=== PATIENT | female | born 1965 | race Caucasian/White ===

== ENCOUNTER 2020-06-25 15:32 | Outpatient (CLI) | payer OTHER, SELFPAY | END 2020-06-25 15:33 | disposition home or self-care (01) | LOC: ANHCOVIDVC 15:32 | PROVIDERS: PCP Family Medicine | DX: Z23 Encounter for immunization (principal) | CPT/HCPCS: 0001A; 91300 ==

== ENCOUNTER 2020-07-03 09:18 | Outpatient (CLI) | payer OTHER, SELFPAY ==
--- NOTE | ~2020-07-03 | XR_ITS ---
EXAMINATION: XR chest 2V EXAM DATE: 07/03/2020 09:40 INDICATION: Left posterior calf melanoma. TECHNIQUE: Frontal and lateral projections of the chest obtained and reviewed. Comparison is made to prior examination from 12/30/2012. FINDINGS: The lungs are clear. There are no pleural effusions. The cardiomediastinal silhouette is within normal limits. There is no pneumothorax suspected. The bones and soft tissues are unremarkab le. There are cholecystectomy clips. IMPRESSION: Unremarkable chest x-ray exam. Reviewed, dictated and finalized at location B. 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
== END 2020-07-03 09:19 | disposition home or self-care (01) ==
LOC: ANHIMG 09:26
PROVIDERS: PCP Family Medicine; Visit Provider Surgery
DX: C43.72 Malignant melanoma of left lower limb, including hip (principal)
CPT/HCPCS: 71046

== ENCOUNTER → 2020-07-09 11:56 | Outpatient (CLI) | payer OTHER, SELFPAY ==
--- NOTE | ~2020-07-09 | XR_ITS ---
EXAMINATION: XR thoracic spine 2V EXAM DATE: 07/09/2020 12:19 INDICATION: Fell 2 weeks ago with persistent low back pain and thoracic pain, sacral pain. Initial en counter. TECHNIQUE: Frontal and lateral projections of the thoracic spine as well as lateral swimmers projecti on of the upper thoracic spine for interpretation. There is no prior study for comparison. FINDINGS: There is mild mid and lower thoracic disc disease with small endplate osteophytes and Schmo rl's nodes. There are no acute fractures identified. The vertebral bodies are aligned in the AP dimen taty. Paraspinal soft tissue is unremarkable. There are cholecystectomy clips. IMPRESSION: Mild thoracic spondylosis. No acute findings. Reviewed, dictated and finalized at location A.
--- NOTE | ~2020-07-09 | XR_ITS ---
EXAMINATION: XR lumbar spine 2-3V, XR sacrum coccyx min 2V EXAM DATE: 07/09/2020 12:19 INDICATION: Fell 2 weeks ago with persistent low back pain and thoracic pain and sacral pain. Initial encounter. TECHNIQUE: Lumber spine frontal, lateral, lateral L5-S1 projections for interpretation. Sacrum fronta l, inlet, lateral projections. There are no prior studies for comparison. FINDINGS: There are no acute fractures identified. There is 2-3 mm retrolisthesis L2 on L3 and L3 on L4. Mild to moderate disc disease at L3-4 and L4-5, mild at the other lumbar levels. Some small endp late osteophytes at mid lumbar and lower thoracic levels. Cholecystectomy clips. Mild to moderate mid and lower lumbar facet arthropathy. Sacrum, sacroiliac joints, sacral arcuate lines are intact. IMPRESSION: 1. Mild to moderate lumbar spondylosis. 2. No acute lumbosacral findings. Reviewed, dictated and finalized at location A. IMPRESSION: 1. Mild to moderate lumbar spondylosis. 2. No acute lumbosacral findings.
== END ==
PROVIDERS: PCP Family Medicine; Visit Provider Physician Assistant
DX: M47.894 Other spondylosis, thoracic region (principal); M47.896 Other spondylosis, lumbar region
CPT/HCPCS: 72070; 72100; 72220

== ENCOUNTER 2020-07-16 15:32 | Outpatient (CLI) | payer OTHER, SELFPAY | END 2020-07-16 15:33 | disposition home or self-care (01) | LOC: ANHCOVIDVC 15:32 | PROVIDERS: PCP Family Medicine | DX: Z23 Encounter for immunization (principal) | CPT/HCPCS: 0002A; 91300 ==

== ENCOUNTER 2021-01-22 11:17 | Outpatient (CLI) | payer OTHER, SELFPAY ==
--- NOTE | ~2021-01-22 | XR_ITS ---
XR chest 2V DATE: 01/22/2021 11:39 INDICATION: Posterior left calf melanoma. TECHNIQUE: PA and lateral views COMPARISON: 07/03/2020 PA and lateral chest FINDINGS: Normal heart size. No hilar or mediastinal enlargement. There is mild aortic unfolding. No pulmonary infiltrate or consolidation, pleural effusion or pulmonary vascular congestion or pneumo thorax is detected. Surgical clips, right upper quadrant, consistent with cholecystectomy. Mild degenerative spurring of the thoracic spine. Osteopenia. IMPRESSION: No active cardiac pulmonary disease Status post cholecystectomy Reviewed, dictated and finalized at location B.
== END 2021-01-22 11:18 | disposition home or self-care (01) ==
PROVIDERS: PCP Family Medicine; Visit Provider Surgery
DX: C43.72 Malignant melanoma of left lower limb, including hip (principal); Z90.49 Acquired absence of other specified parts of digestive tract
CPT/HCPCS: 71046

== ENCOUNTER 2021-09-15 13:05 | Outpatient (CLI) | payer OTHER, SELFPAY ==
--- NOTE | ~2021-09-15 | XR_ITS ---
EXAMINATION: XR chest 2V DATE: 09/15/2021 13:27 INDICATION: Left posterior calf melanoma. TECHNIQUE: Frontal and lateral views of the chest were obtained. COMPARISON: Chest 2 views 01/22/2021 FINDINGS: The chest demonstrates clear lungs without pneumonia, pleural effusion, or pneumothorax. Th e heart size is normal. Surgical clips in the right upper quadrant are likely from cholecystectomy. IMPRESSION: 1. No evidence of metastatic disease. Reviewed, dictated and finalized at location A.
== END 2021-09-15 13:06 | disposition home or self-care (01) ==
PROVIDERS: PCP Family Medicine; Visit Provider Surgery
DX: C43.72 Malignant melanoma of left lower limb, including hip (principal)
CPT/HCPCS: 71046

== ENCOUNTER 2021-09-16 09:43 | Outpatient (CLI) | payer OTHER, SELFPAY ==
--- NOTE | ~2021-09-16 | XR_ITS ---
EXAMINATION: XR foot RT min 3V DATE: 09/16/2021 09:56 INDICATION: Right foot injury and pain. TECHNIQUE: 4 views of right foot were obtained. COMPARISON: None. FINDINGS: Bone alignment is normal. No fracture. There is mild osteoarthritis of first metatarsophala ngeal joint and some of the interphalangeal joints and midfoot joints. There is an enthesophyte at po sterior aspect of calcaneal tuberosity. IMPRESSION: 1. Mild polyarticular osteoarthritis. Reviewed, dictated and finalized at location A.
== END 2021-09-16 09:44 | disposition home or self-care (01) ==
PROVIDERS: PCP Family Medicine; Visit Provider Family Medicine
DX: M79.671 Pain in right foot (principal); M19.071 Primary osteoarthritis, right ankle and foot
CPT/HCPCS: 73630

== ENCOUNTER 2022-04-08 11:41 | Outpatient (CLI) | payer OTHER, SELFPAY ==
--- NOTE | ~2022-04-08 | XR_ITS ---
EXAMINATION: XR chest 2V DATE: 04/08/2022 12:09 INDICATION: Melanoma TECHNIQUE: PA and lateral views of the chest are obtained. COMPARISON: 09/15/2021 FINDINGS: The lungs are free of acute opacities. No pleural effusion or pneumothorax. The cardiomedia stinal silhouette is normal. There is moderate thoracic spondylosis. Surgical clips in the right uppe r quadrant are likely from prior cholecystectomy. IMPRESSION: 1. No acute cardiopulmonary abnormality. Reviewed, dictated and finalized at location A. TBAND SEPARATOR
== END 2022-04-08 11:42 | disposition home or self-care (01) ==
PROVIDERS: PCP Family Medicine; Visit Provider Surgery
DX: C43.72 Malignant melanoma of left lower limb, including hip (principal)
CPT/HCPCS: 71046

== ENCOUNTER 2022-04-21 00:31 | Day surgery (SDC) | payer OTHER, SELFPAY ==
[2022-04-08 12:35] VITALS: BMI 26.0
[2022-04-21 09:15] VITALS: BP 137/86; PULSE 95; RESP 18; TEMP 36.6; O2SAT 100; BMI 25.8
[2022-04-21] MEDS: LACTATED RINGERS 1,000 ML 150 ML IV CONT (09:21)
--- NOTE | 2022-04-21 10:13 | WPDANESEPPF ---
Anes - Initial Pre Proc Eval Procedure: Operation Date: 04/21/22 10:30 Proposed Procedures p Screening Colonoscopy - Dillon Tejeda MD Date/Time: 04/21/22 10:13 Surgeon: Dillon Tejeda MD Pre Op Diagnosis: neoplasm screening Patient Data Age: 56 Gender: F Height: 1.6 m Weight: 66.1 kg Last Vital Signs Temp 97.8 F 04/21/22 09:15 Pulse 95 04/21/22 09:15 Resp 18 04/21/22 09:15 BP 137/86 04/21/22 09:15 Pulse Ox 100 04/21/22 09:15 O2 Del Method Room Air 04/21/22 09:15 Allergies Allergy/AdvReac Type Severity Reaction Status Date / Time codeine Allergy Severe Swelling Verified 04/21/22 09:13 of Lip/Tongue/Throat hydrocodone Allergy Severe RASH,THROAT Verified 04/21/22 09:13 SWELLING HYDROCODONE BIT Allergy Severe Swelling Uncoded 04/08/22 12:36 of Lip/Tongue/Throat Home Medications Medication Instructions Recorded Confirmed Type aspirin 325 mg tablet 325 mg PO DAILY 03/28/19 04/21/22 History cetirizine 10 mg capsule (Zyrtec) 10 mg PO DAILY 03/29/19 04/21/22 History levalbuterol tartrate 45 2 inh inhalation Q6H PRN shortness 12/18/20 04/21/22 Rx mcg/actuation aerosol inhaler of breath or wheezing #15 grams (Xopenex HFA) azelastine 205.5 mcg (0.15 %) 1 spray intranasal BID #30 mL 08/16/21 04/21/22 Rx nasal spray multivitamin 1 tablet PO DAILY 12/17/21 04/21/22 History pantoprazole 40 mg tablet,delayed 40 mg PO QAM #90 tabs 01/02/22 04/21/22 Rx release Adult Probiotic 1 tab-cap PO DAILY 04/08/22 04/21/22 History ascorbic acid (vitamin C) 250 mg 500 mg PO DAILY 04/08/22 04/21/22 History chewable tablet budesonide-formoterol HFA 80 2 puff inhalation Q12H 04/08/22 04/21/22 History mcg-4.5 mcg/actuation aerosol inhaler (Symbicort) docusate sodium 100 mg tablet 100 mg PO DAILY 04/08/22 04/21/22 History levalbuterol HCl 1.25 mg/3 mL See Rx Instructions .Route 04/08/22 04/21/22 History solution for nebulization .COMPLEX PRN Shortness Of Breath Or Wheezing metoprolol succinate 25 mg 25 mg PO HS 04/08/22 04/21/22 History tablet,extended release 24 hr Patient hx anesthesia problems: none Family hx anesthesia problems: none Results Review: All pre-operative results and documents have been reviewed as part of the pre-operative evaluation. [facility] Past Medical History Medical History Abdominal pain Acute bronchitis due to infection Acute sinusitis, unspecified Colon polyps Essential hypertension Mild persistent asthma with exacerbation Mild persistent asthma without complication Palpitation Pulmonary embolism Vitamin D deficiency Family History Family History Mother Asthma Family history of sleep apnea Other Cerebrovascular accident Colon polyp Diabetes mellitus Family history of arthritis Social History Social History Smoking status: Never smoker Second hand tobacco smoke exposure: No Alcohol intake: never Alcohol use details: RARE Substance use: never Substance use type: does not use Living arrangements: with family Gender identity (if verbalized by the patient): Female Spiritual care concerns: No Agree to blood products: Yes Anes - Eval Final PreProcedure Day of Procedure 04/21/22 10:13 Patient weight: normal Heart: regular rate and rhythm Lungs: clear to auscultation Airway: Mallampati scale class II Neurological: alert and oriented Last oral intake: >/= 8 hours ASA classification: II Emergent: no Anesthetic plan: proceed Anesthesia type and monitoring: general GIVS and standard monitoring Results Review: All pre-operative results and documents have been reviewed as part of the pre-operative evaluation. Informed Consent: The patient's anesthetic plan and its attendant risks and benefits were discussed with chas
--- NOTE | 2022-04-21 10:26 | PM.HPGS ---
History of Present Illness History of Present Illness Consent: Risks, benefits, and alternatives have been discussed and questions answered. Patient agrees to proceed with procedure. Chief complaint: neoplasm screening Narrative: Sheila Freeman is a 56 year old female Presents for screening colonoscopy. Patient's current weight appetite bowel movements are normal. Patient denies abdominal pain. She has had no bleeding. Patient's previous colonoscopy 2012 was unremarkable. Family history is significant than an uncle had colon cancer. Patient's mother had of neuroendocrine tumor removed from her duodenum earlier this year. Patient presents today for screening colonoscopy. Review of Systems Review of Systems: Review of systems noncontributory. [facility] Past Medical History Medical History Abdominal pain Acute bronchitis due to infection Acute sinusitis, unspecified Colon polyps Essential hypertension Mild persistent asthma with exacerbation Mild persistent asthma without complication Palpitation Pulmonary embolism Vitamin D deficiency Family History Family History Mother Asthma Family history of sleep apnea Other Cerebrovascular accident Colon polyp Diabetes mellitus Family history of arthritis Social History Social History Smoking status: Never smoker Second hand tobacco smoke exposure: No Alcohol intake: never Alcohol use details: RARE Substance use: never Substance use type: does not use Living arrangements: with family Gender identity (if verbalized by the patient): Female Spiritual care concerns: No Agree to blood products: Yes Meds Home Medications and Allergies Home Medications Medication Instructions Recorded Confirmed Type aspirin 325 mg tablet 325 mg PO DAILY 03/28/19 04/21/22 History cetirizine 10 mg capsule (Zyrtec) 10 mg PO DAILY 03/29/19 04/21/22 History levalbuterol tartrate 45 2 inh inhalation Q6H PRN shortness 12/18/20 04/21/22 Rx mcg/actuation aerosol inhaler of breath or wheezing #15 grams (Xopenex HFA) azelastine 205.5 mcg (0.15 %) 1 spray intranasal BID #30 mL 08/16/21 04/21/22 Rx nasal spray multivitamin 1 tablet PO DAILY 12/17/21 04/21/22 History pantoprazole 40 mg tablet,delayed 40 mg PO QAM #90 tabs 01/02/22 04/21/22 Rx release Adult Probiotic 1 tab-cap PO DAILY 04/08/22 04/21/22 History ascorbic acid (vitamin C) 250 mg 500 mg PO DAILY 04/08/22 04/21/22 History chewable tablet budesonide-formoterol HFA 80 2 puff inhalation Q12H 04/08/22 04/21/22 History mcg-4.5 mcg/actuation aerosol inhaler (Symbicort) docusate sodium 100 mg tablet 100 mg PO DAILY 04/08/22 04/21/22 History levalbuterol HCl 1.25 mg/3 mL See Rx Instructions .Route 04/08/22 04/21/22 History solution for nebulization .COMPLEX PRN Shortness Of Breath Or Wheezing metoprolol succinate 25 mg 25 mg PO HS 04/08/22 04/21/22 History tablet,extended release 24 hr Allergies Allergy/AdvReac Type Severity Reaction Status Date / Time codeine Allergy Severe Swelling Verified 04/21/22 09:13 of Lip/Tongue/Throat hydrocodone Allergy Severe RASH,THROAT Verified 04/21/22 09:13 SWELLING HYDROCODONE BIT Allergy Severe Swelling Uncoded 04/08/22 12:36 of Lip/Tongue/Throat Vital Signs Vital Signs - 24 hr 04/21/22 09:15 Temperature 97.8 F Pulse Rate 95 Respiratory Rate 18 Blood Pressure 137/86 Pulse Oximetry 100 Oxygen Delivery Room Air Exam Narrative: Physical exam reveals patient to be alert. Vital signs stable. HEENT exam is unremarkable. Patient is anicteric. Lungs are clear to auscultation and percussion. Heart is without murmur or extra sounds. Abdomen bowel sounds are present soft nontender with no organomegaly. Digital external rectal exam is normal.
[2022-04-21 10:51] VITALS: BP 131/73; PULSE 75; RESP 18; O2SAT 98
[2022-04-21 11:01] VITALS: BP 126/74; PULSE 77; RESP 20; O2SAT 98
[2022-04-21 11:11] VITALS: BP 140/75; PULSE 78; RESP 22; O2SAT 98
== END 2022-04-21 11:21 | disposition home or self-care (01) ==
PROVIDERS: PCP Family Medicine; Visit Provider Internal Medicine Gastroenterology
PROC: 0DJD8ZZ Inspection of Lower Intestinal Tract, Via Natural or Artificial Opening Endoscopic (ICD-10-PCS; CPT 45378; principal; 2022-04-21 10:30)
DX: Z12.11 Encounter for screening for malignant neoplasm of colon (principal); K64.8 Other hemorrhoids; I10 Essential (primary) hypertension; J45.30 Mild persistent asthma, uncomplicated; Z79.51 Long term (current) use of inhaled steroids; Z79.82 Long term (current) use of aspirin
CPT/HCPCS: 45378; J2704; J7120

== ENCOUNTER 2022-04-22 07:44 | Outpatient (CLI) | payer OTHER, SELFPAY ==
--- NOTE | ~2022-04-22 | MM_ITS ---
EXAMINATION: MM screening joaquin BI w molina HISTORY: Screening mammogram TECHNIQUE: Craniocaudal and mediolateral oblique 3-D tomosynthesis images were obtained and synthetic 2-D images were generated. CAD analysis was submitted and interpreted. COMPARISON: 10/19/2018, 01/19/2015, 04/2013 bilateral screening mammogram examinations BREAST PARENCHYMAL COMPOSITION: The breasts are heterogeneously dense, which may obscure small masses . FINDINGS: Scattered bilateral ...benign calcifications. There is no evidence of suspicious mass, calc ification, or architectural distortion to suggest malignancy in either breast. There has been no susp icious interval change. IMPRESSION: 1. No mammographic evidence of malignancy. 2. Recommend routine screening mammography in one year. BI-RADS Category 2: Benign finding(s). Reviewed, dictated and finalized at location A. T MAGISTRATE
--- NOTE | ~2022-04-22 | DEXA_ITS ---
Bone Density Report Name: NUBIA MOTT Age: 56 Sex: Female Ethnicity: White Date of : 1965 Indication: postmenopausal; screening for osteoporosis; height loss; cancer; asthma or emphysema; Referring Provider: DEAN MONTOYA Study: Bone densitometry was performed. Exam Date: April 22, 2022 Accession number: [id number] Bone Density: Region BMD T-score Z-score Classification AP Spine(L1-L4) 0.898 -1.4 -0.1 Osteopenia Femoral Neck (Left) 0.733 -1.0 0.1 Normal Total Hip (Left) 0.874 -0.6 0.3 Normal Femoral Neck (Right) 0.749 -0.9 0.3 Normal Total Hip (Right) 0.930 -0.1 0.7 Normal Total Hip Mean 0.902 -0.4 0.5 Normal World Health Organization criteria for BMD impression classify patients as: Normal (T-score at or above -1.0), Osteopenia (T-score between -1.0 and -2.5), or Osteoporosis (T-score at or below -2.5). 10-year Fracture Risk(1): Major Osteoporotic Fracture 6.6% Hip Fracture 0.3% Reported Risk Factors: [place] (), Neck BMD=0.733, BMI=26.0 (1) FRAX(R) Version 3.08. Fracture probability calculated for an untreated patient. Fracture probability may be lower if the patient has received treatment. Clinical Information Provided by Patient: Has the following medical conditions: Asthma or Emphysema, Cancer Patient maximum height was 63 Menopause Age: 50 Drinks caffeinated beverages Onset of menses at age 14 Number of children 0 Impression: The patient has low bone mass, based on the Total Spine T-score. The patient has an estimated ten-year risk of hip fracture of 0.3% and an estimated ten-year risk of major fracture of 6.6%, based on the WHO FRAX algorithm. Discussion: BONE DENSITY IS LOW AT ONE OR MORE SKELETAL SITES. This patient's lowest T-score is low at one or more skeletal sites. It meets the World Health Organization's (WHO) criteria for ?low bone mass? (T-score between -1.0 and -2.5). The patient's 10-year risk of fracture as calculated by FRAX is less than the threshold where pharmacological therapy is recommended by the National Osteoporosis Foundation (NOF). However, all treatment decisions require clinical judgment and consideration of individual patient factors, including patient preferences, comorbidities, previous drug use, risk factors not captured in the FRAX model (e.g., frailty, falls, vitamin D deficiency, increased bone turnover, interval significant decline in bone density) and possible under or overestimation of fracture risk by FRAX. The patient should follow a healthful lifestyle (good nutrition with adequate calcium and vitamin D, and appropriate weight-bearing exercise). Follow-Up: Consider repeating this study in 2 to 3 years to reassess this patient's status, or sooner if there is some new clinical indication. Reported by: Kasi
== END 2022-04-22 07:45 | disposition home or self-care (01) ==
LOC: ANHIMG 07:46
PROVIDERS: PCP Family Medicine; Visit Provider Family Medicine
DX: Z12.31 Encounter for screening mammogram for malignant neoplasm of breast (principal); Z78.0 Asymptomatic menopausal state; M85.88 Other specified disorders of bone density and structure, other site
CPT/HCPCS: 77063; 77067; 77080

== ENCOUNTER 2022-09-17 08:03 | Emergency (ER) | payer OTHER, SELFPAY ==
--- NOTE | 2022-09-17 08:04 | ED.URI ---
HPI - URI/Sore Throat General Chief Complaint: Upper Respiratory Infection Stated Complaint: Lt Ear Irritation,Congestion Time Seen by Provider: 09/17/22 08:03 Source: patient Mode of arrival: ambulatory Limitations: no limitations History of Present Illness HPI Narrative: Patient is a 49-year-old female who presents with congestion and left ear pain for 2 days. Patient denies any fever, chills, cough, sore throat, nausea, vomiting, diarrhea. States left ear pain became unbearable last night, has taken Tylenol with no relief and used warm wash rags. Is also taking Zyrtec for congestion. Denies any draining from ear but states she feels like it is under water . Related Data Home Medications Medication Instructions Recorded Confirmed aspirin 325 mg tablet 325 mg PO DAILY 03/28/19 06/17/22 cetirizine 10 mg capsule (Zyrtec) 10 mg PO DAILY 03/29/19 06/17/22 multivitamin 1 tablet PO DAILY 12/17/21 06/17/22 Adult Probiotic 1 tab-cap PO DAILY 04/08/22 06/17/22 ascorbic acid (vitamin C) 250 mg 500 mg PO DAILY 04/08/22 06/17/22 chewable tablet docusate sodium 100 mg tablet 100 mg PO DAILY 04/08/22 06/17/22 Allergies Allergy/AdvReac Type Severity Reaction Status Date / Time codeine Allergy Severe Swelling Verified 09/17/22 08:14 of Lip/Tongue/Throat hydrocodone Allergy Severe RASH,THROAT Verified 09/17/22 08:14 SWELLING HYDROCODONE BIT Allergy Severe Swelling Uncoded 09/17/22 08:14 of Lip/Tongue/Throat Review of Systems Review of Systems: All systems reviewed & are unremarkable except as noted in HPI and below Constitutional: Constitutional: Denies body ache(s), Denies chills, Denies fatigue, Denies fever(s), Denies headache(s), Denies malaise and Denies weakness Eyes: Eyes: Denies blurry vision, Denies itchy eyes and Denies loss of vision ENT: Reports otalgia, Denies headache(s), Reports nasal congestion, Denies sinus pain and Denies sore throat Cardiovascular: Cardiovascular: Denies chest pain, Denies irregular heart rhythm and Denies dyspnea Respiratory: Respiratory: Denies cough and Denies dyspnea Gastrointestinal: Gastrointestinal: Denies abdominal pain, Denies diarrhea, Denies nausea and Denies vomiting Musculoskeletal: Musculoskeletal: Denies back pain, Denies myalgias and Denies arthralgias Integumentary/Breasts: Skin/Breast: Denies pruritus and Denies rash Neurologic: Denies headache(s), Denies loss of vision and Denies weakness Psychiatric: Psychiatric: Reports no additional psychiatric complaints Endocrine: Endocrine: Denies fatigue Allergic/Immunologic: Allergic/Immunologic: Denies itchy eyes PMFSH Past Medical History Medical History Abdominal pain Acute bronchitis due to infection Acute sinusitis, unspecified Colon polyps Essential hypertension Mild persistent asthma with exacerbation Mild persistent asthma without complication Palpitation Pulmonary embolism Vitamin D deficiency Family History Family History Mother Asthma Family history of sleep apnea Other Cerebrovascular accident Colon polyp Diabetes mellitus Family history of arthritis Social History Social History (Updated 06/17/22 @ 08:50 by Yocasta Wharton [facility]) Smoking status: Never smoker Second hand tobacco smoke exposure: No Alcohol intake: never Alcohol use details: RARE Substance use: never Substance use type: does not use Lack of Transportation: No Lack of Food: Never True Current Housing: I Have Housing Concerned About Future Housing: No Difficulty Paying Gas/Electric Bills: No Difficulty Paying for Meds: No Currently Unemployed: No Education: Bachelor's Degree Difficulty w/ Childcare or Family Care: No Living arrangements: with family Occupation/Education: occupation Gender identity (if verbalized by the patient): Female Sexual Orien
[2022-09-17 08:11] VITALS: BP 161/78; PULSE 74; RESP 18; TEMP 36.7; O2SAT 100
== END 2022-09-17 08:26 | disposition home or self-care (01) ==
PROVIDERS: Emergency Provider Nurse Practitioner Family; PCP Family Medicine
DX: H66.92 Otitis media, unspecified, left ear (principal); I10 Essential (primary) hypertension; J45.909 Unspecified asthma, uncomplicated; Z86.711 Personal history of pulmonary embolism; Z79.82 Long term (current) use of aspirin
CPT/HCPCS: 99213; G0463

== ENCOUNTER 2023-04-03 13:51 | Outpatient (CLI) | payer OTHER, SELFPAY ==
--- NOTE | ~2023-04-03 | XR_ITS ---
Clinical Indication: Melanoma PA and lateral views of the chest: Comparison: 04/08/2022 Findings: The lungs are clear, without evidence of focal consolidation or pleural effusion. Cardiome diastinal silhouette is within normal limits. Bones and soft tissues are unremarkable. Impression: Normal chest. Reviewed, dictated and finalized at location . UNICATIONS CONTROLLER Impression: Normal chest.
== END 2023-04-03 13:52 | disposition home or self-care (01) ==
LOC: ANHIMG 13:56
PROVIDERS: PCP Family Medicine; Visit Provider Surgery
DX: C43.72 Malignant melanoma of left lower limb, including hip (principal)
CPT/HCPCS: 71046

== ENCOUNTER 2024-01-19 13:22 | Outpatient (CLI) | payer OTHER, SELFPAY ==
--- NOTE | ~2024-01-19 | XR_ITS ---
EXAMINATION: XR chest 2V 01/19/2024 13:48 INDICATION: Melanoma. PROCEDURE: 2 view chest COMPARISON: Comparison to multiple prior studies sequentially, with oldest reviewed study dated 04/2020. FINDINGS: The lungs are clear. The cardiomediastinal silhouette is within normal limits. There are no pleural effusions. There is no pneumothorax suspected. IMPRESSION: 1: NO ACUTE CARDIOPULMONARY DISEASE. Reviewed, dictated and finalized at location B.
--- NOTE | ~2024-01-19 | XR_ITS ---
3 VIEWS THORACIC SPINE Ordering provider: Saundra Garcia MD History: . PAIN IN MIDDLE OF LOWER THORACIC SPINE FOR A FEW MNTHS . Comparison: July 09, 2020 FINDINGS: VERTEBRAL BODIES: Normal height and alignment. No visible fracture or subluxation. Degenerative singh es of the spine. DISK SPACES: Multilevel disc space narrowing in the lower thoracic area. SOFT TISSUES: Normal. IMPRESSION: No acute osseous abnormality of the thoracic spine. Reviewed, dictated and finalized at location A.
== END 2024-01-19 13:23 | disposition home or self-care (01) ==
PROVIDERS: PCP Family Medicine; Visit Provider Surgery
DX: M54.6 Pain in thoracic spine (principal); C43.72 Malignant melanoma of left lower limb, including hip
CPT/HCPCS: 71046; 72072

== ENCOUNTER 2024-01-26 09:23 | Outpatient (CLI) | payer OTHER, SELFPAY ==
--- NOTE | ~2024-01-26 | MM_ITS ---
EXAMINATION: MM screening joaquin BI w molina HISTORY: Screening TECHNIQUE: Craniocaudal and mediolateral oblique 3-D tomosynthesis images were obtained and synthetic 2-D images were generated. CAD analysis was submitted and interpreted. COMPARISON: Comparison to multiple prior studies sequentially, with oldest reviewed study dated 01/19. BREAST PARENCHYMAL COMPOSITION: Dense: The breasts are heterogeneously dense, which may obscure small masses FINDINGS: There is no evidence of suspicious mass, calcification, or architectural distortion to sugg est malignancy in either breast. There has been no suspicious interval change. IMPRESSION: 1. No mammographic evidence of malignancy. 2. Recommend routine screening mammography in one year. BI-RADS Category 1: Negative Reviewed, dictated and finalized at location B.
== END 2024-01-26 09:24 | disposition home or self-care (01) ==
LOC: ANHIMG 09:25
PROVIDERS: PCP Family Medicine; Visit Provider Obstetrics & Gynecology
DX: Z12.31 Encounter for screening mammogram for malignant neoplasm of breast (principal)
CPT/HCPCS: 77063; 77067

== ENCOUNTER 2024-03-08 09:12 | Outpatient (CLI) | payer OTHER, SELFPAY ==
--- NOTE | ~2024-03-08 | XR_ITS ---
EXAMINATION: XR foot LT min 3V DATE: 03/08/2024 09:31 INDICATION: Pain in left toes. Injury in November. TECHNIQUE: 4 views of left foot were obtained. COMPARISON: None. FINDINGS: There is mild hallux valgus. There is a transverse fracture of neck of fifth proximal phala nx with callus formation. The distal fracture fragment demonstrates 1 mm dorsal displacement. There i s mild osteoarthritis of talonavicular joint. There is mild osteoarthritis of first metatarsophalange al joint. IMPRESSION: 1. Healing transverse fracture of neck of fifth proximal phalanx. Reviewed, dictated and finalized at location A. R/RELAY CRAFTSMAN
== END 2024-03-08 09:13 | disposition home or self-care (01) ==
PROVIDERS: PCP Family Medicine; Visit Provider Family Medicine
DX: S92.512A Displaced fracture of proximal phalanx of left lesser toe(s), initial encounter for closed fracture (principal); X58.XXXA Exposure to other specified factors, initial encounter
CPT/HCPCS: 73630

== ENCOUNTER 2025-02-04 10:38 | Outpatient (CLI) | payer OTHER, SELFPAY ==
--- NOTE | ~2025-02-04 | XR_ITS ---
EXAMINATION: XR chest 2V, 02/04/2025 10:50 CDT HISTORY: Melanoma of lft posterior calf 5 YEAR FOLLOW UP COMPARISON: No comparisons available. Technique: 2 views obtained. Findings: The lungs are clear, no effusion. No pneumothorax. Heart is normal size. Mediastinal and hilar contours are within normal limits. Bony thorax no acute abnormality. Impression: No acute cardiopulmonary abnormality. Reviewed, dictated and finalized at location P. Impression: No acute cardiopulmonary abnormality.
--- OUTSIDE RECORDS SUMMARY | 2025-02-04 12:31 | XMS_ITS | Clinical Summary ---
Author Organization [facility] Address [address] [place] [address] Care Team Providers Care Wrecker Operator Name Role Phone Saundra Garcia MD Primary Care Provider [phone] Source Comments [facility],non-owned Affiliates and Associated Physician Practices is amultiple site organization consisting of ambulatory clinics and hospital sitesin [place], [place], [place] and [place]. This disclosure is being madepursuant to the Care Everywhere program and may not contain all information available regarding this patient. Last updated 18.[facility] Allergies Active Allergy Reactions Criticality Noted Date Comments Codeine Anaphylaxis High 06/22/2015 Medications * Be aware that medications may not be up to date on this document. Alwaysverify current medications with the patient. levalbuterol (XOPENEX) 1.25 MG/3ML nebulizer solution INHALE 1 VIAL VIA NEBULIZER EVERY 8 HOURS 0 Active levalbuterol (XOPENEX) 45 MCG/ACT inhaler TAKE 2 PUFFS BY MOUTH EVERY 6 HOURS NEEDED 0 Active metoprolol succinate XL 24hr (TOPROL XL) 25 MG tablet ON HOLD 0 Active DENTA 5000 PLUS 1.1 % USE TWICE DAILY IN PLACE OF REGULAR TOOTHPASTE. DO NOT RINSE AFTER USE. 0 Active aspirin (ASPIRIN) 325 MG tablet Take 1 (one) tablet by mouth once daily Active budesonide-form oterol (SYMBICORT) 80-4.5 MCG/ACT inhaler INHALE 2 PUFFS BY MOUTH EVERY 12 HOURS, USE WITH SPACER. RINSE MOUTH AND SPIT AFTER EACH USE 1 Active Cetirizine HCl (ZYRTEC PO) Active pantoprazole EC (PROTONIX) 20 MG tablet Take 1 (one) tablet by mouth every morning 1 Active EPINEPHrine (Epipen) 0.3 MG/0.3ML auto-injector pen Inject 0.3 mL into muscle once as needed 5 Active Active Problems Problem Noted Date Diagnosed Date Melanoma of left posterior calf 11/18/2019 Allergy to other foods 06/28/2015 Overview (07/24/2017): As a child had vomiting within minutes of eating fish & shellfish. As an adult gets a headache and swollen lips if in a seafood restaurant. Gastro-esophageal reflux disease without esophag itis 06/28/2015 Other diseases of vocal cords 05/20/2014 Dysphonia 01/14/2014 Thyrotoxicosis without thyroid storm 01/14/2014 Chronic rhinitis 01/14/2014 Uncomplicated asthma 01/14/2014 Encounters Date Type Department Care Team Description 01/15/2025 9:30 AM CDT Office Visit [facility] - General Surgery [address] [place] [address] Anil Bennett MD Melanoma of left posterior calf (HCC) (Primary Dx) 01/15/2025 Travel 01/15/2025 Orders Only [facility] - General Surgery [address] [place] [address] Anil Bennett MD Melanoma of left posterior calf (HCC) from Last 3 Months Immunizations Immunization Administration Dates Next Due INFLUENZA VACCINE 01/22/2021 Family History Medical History Relation Name Comments Broken Bones Brother Diabetes Brother Heart Disease Brother Broken Bones Father Broken Bones Maternal Grandfather Heart Disease Maternal Grandfather Heart Disease Maternal Grandmother Arthritis - Rheumatoid Mother Broken Bones Mother Kidney Disease Mother Phlebitis/Blood Clot Mother Thyroid Disease Mother Broken Bones Paternal Grandfather Diabetes Paternal Grandmother Arthritis - Rheumatoid Sister Broken Bones Sister Diabetes Sister Heart Disease Sister Relation Name Status Comments Brother Father Maternal Grandfather Maternal Grandmother Mother Paternal Grandfather Paternal Grandmother Sister Social History Tobacco Use Types Packs/Day Years Used Date Smoking Tobacco: Never Smokeless Tobacco: Never Tobacco Cessation:Counseling Given: No Alcohol Use Standard Drinks/Week Comments Yes 0 (1 standard drink = 0.6 oz pur e alcohol) rarely Comments No Sex and Gender Information Value Date Recorded Sex Assigned at Not on file 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 Gender Identity Not on file Sexual Orientation Not on file Last Filed Vital Signs Vital Sign Reading Time Taken Comments Blood Pressure 137/86 01/15/2025 9:11 AM CDT Pulse 89 01/15/2025 9:07 AM CDT Temperature 36.6 C (97.8 F) 01/15/2025 9:07 AM CDT Respiratory Rate 18 07/19/2021 12:5 9 PM CDT Oxygen Saturation 97% 01/15/2025 9:07 AM CDT Inhaled Oxygen Concentration - - Weight 70.2 kg (154 lb 12.8 oz) 01/15/2025 9:07 AM CDT Height 160 cm (5' 3) 01/15/2025 9:07 AM CDT Body Mass Index 27.42 01/15/2025 9:07 AM CDT Plan of Treatment Health Maintenance Due Date Last Done Comments COLOGUARD (AGES 45-75) - COLON CA SCREENING 1964 COLON MONITORING 1964 COLONOSCOPY - COLON CA SCREENING 1964 CT COLONOGRAPHY - COLON CA SCREENING 1964 Colorectal Cancer Screening 1964 FIT - COLON CA SCREENING 1964 FLEX SIG - COLON CA SCREENING 1964 MAMMOGRAM 1964 HIV SCREENING 1979 HEPATITIS C SCREENING 04/25/1982 DTAP/TDAP/TD VACCINES (1 - Tdap) 1983 PNEUMOCOCCAL VACCINE 50+ (1 of 2 - PCV) 1983 PAP SMEAR 1985 ZOSTER VACCINE (1 of 2) 2014 SCREENING FOR DIABETES 01/17/2024 11/26/2019 DEPRESSION SCREENING 04/24/2024 Respiratory Syncytial Virus (RSV) Vaccine Pt: or over 60 yrs (1 - Risk 60-74 years 1-dose series) 2024 COVID-19 VACCINE ( - season) 2024 01/13/2022, 02/09/2021, 07/16/2020, Additional history exists INFLUENZA VACCINE (#1) 2024 2, 02/05/2021, 01/22/2021, Additional history exists LIPID TESTING 01/09/2025 01/10/2020, 01/18/2019 HEPATITIS B VACCINE Aged Out No longe r eligible based on patient's age to complete this topic HIB VACCINE Aged Out No longer eligi ble based on patient's age to complete this topic HPV VACCINE Aged Out No longer eligi ble based on patient's age to complete this topic MENINGOCOCCAL (Group B) VACCINE SHARED DECISION-MAKING Aged Out No longer eligible based on patient's age to complete this topic MENINGOCOCCAL GROUPS A/C/Y/W VACCINE Aged Out No longer eligible based on patient's age to complete this topic Procedures Procedure Name Priority Date/Time Associated Diagnosis Comments COMPREHENSIVE METABOLIC PANEL Routine 11/26/2019 1:41 PM CDT Melanoma of left posterior calf from Last 3 Months or Most Recently Relevant to Health Maintenance Results * COMPREHENSIVE METABOLIC PANEL (11/26/2019 1:41 PM CDT) BUN 18 7 - 26 mg/dL 11/26/2019 3:00 PM [facility] Creatinine 0.9 0.6 - 1.2 mg/dL 11/26/2019 3:00 PM [facility] Sodium 141 136 - 145 mmol/L 11/26/2019 3:00 PM [facility] Potassium 3.6 3.5 - 4.5 mmol/L 11/26/2019 3:00 PM [facility] Chloride 105 98 - 107 mmol/L 11/26/2019 3:00 PM [facility] CO2 26 22 - 29 mmol/L 11/26/2019 3:00 PM [facility] Glucose 86 70 - 115 mg/dL 11/26/2019 3:00 PM [facility] Calcium 8.9 8.4 - 10.2 mg/dL 11/26/2019 3:00 PM [facility] Protein Total 6.6 6.0 - 8.3 g/dL 11/26/2019 3:00 PM [facility] Albumin 4.2 3.4 - 5.0 g/dL 11/26/2019 3:00 PM [facility] Bilirubin Total 0.6 0.2 - 1.2 mg/dL 11/26/2019 3:00 PM [facility] Alkaline Phosphatase 70 40 - 150 Units/L 11/26/2019 3:00 PM [facility] ALT 25 0 - 55 Units/L 11/26/2019 3:00 PM [facility] AST 20 5 - 34 Units/L 11/26/2019 3:00 PM [facility] Anion Gap 14 8 - 18 11/26/2019 3:00 PM [facility] BUN/Creatinine Ratio 20 7 - 23 11/26/2019 3:00 PM [facility] Osmolality Calculated 293 270 - 300 mOsm/kg 11/26/2019 3:00 PM [facility] Albumin/Globulin Ratio 1.8 1.1 - 2.3 11/26/2019 3:00 PM [facility] eGFR >60 >60 mL/min/1.7 3 m2 11/26/2019 3:00 PM [facility] Blood BLOOD SPECIMEN / Unknown Lab Venipuncture / Unknown 11/26/2019 1:41 PM CDT 11/26/2019 2:23 PM CDT Anil Bennett MD LAB - CHEMISTRY ORDERABLES Final Result Performing Organization Address [facility]/State/ZIP Co de Phone Number [address] [address], [facility] [phone] from Last 3 Months or Most Recently Relevant to Health Maintenance Insurance [facility] [place] [address] Care Teams Wrecker Operator Relationship Specialty Start Date End Date Saundra Garcia MD [address] [place] [address] PCP - General 07/23/13
--- OUTSIDE RECORDS SUMMARY | 2025-02-04 12:31 | XMS_ITS | Clinical Summary ---
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 Gender Identity Not on file Sexual Orientation Not on file Plan of Treatment Health Maintenance Due Date Last Done Comments DTAP/TDAP/TD VACCINES (1 - Tdap) 1983 HPV/Cotest (21-29) 1985 CERVICAL CANCER SCREENING 1994 HPV/Cotest (30-65) 1994 PAP SMEAR 1994 BREAST CANCER SCREENING 2004 COLORECTAL SCREENING 2009 Colorectal Cancer Screening 2009 FIT-DNA Q 3 years 2009 FIT/FOBT Q 1 year 2009 Flex Sig/CT Colonography Q 5 years 2009 ZOSTER VACCINE (1 of 2) 2014 INFLUENZA VACCINE (#1) 2024 RSV VACCINE (60+ or ) (1 - 1-dose 75+ series) 2039 HEPATITIS B VACCINES Aged Out No long er eligible based on patient's age to complete this topic Insurance [employer] OPEN ACCESS Care Teams Mail Handler Equipment Operator Relationship Specialty Start Date End Date Saundra Garcia MD [address] [place] [address] PCP - General 03/20/07
--- OUTSIDE RECORDS SUMMARY | 2025-02-04 12:31 | XMS_ITS | Encounter Summary ---
Author Organization [facility] Address 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
--- OUTSIDE RECORDS SUMMARY | 2025-02-04 12:31 | XMS_ITS | Clinical Summary ---
Author Organization [facility] [address] Address [address] [place] [address] Care Team Providers Care Charge Hand Name Role Phone Saundra Garcia MD Primary Care Provider [phone] Allergies Active Allergy Reactions Criticality Noted Date Comments Codeine Anaphylaxis High 06/22/2015 Hydrocodone Anaphylaxis High Medications metoprolol XL (TOPROL-XL) 25 mg 24 hr tablet Take 1 tablet (25 mg total) by mouth daily Active levalbuterol (XOPENEX) 1.25 mg/3 mL nebulizer solution Take 3 mL (1.25 mg total) by nebulization 3 (three) times a day Active levalbuterol (XOPENEX HFA) 45 mcg/actuation inhaler Inhale 1-2 puffs Act jordy ipratropium bromide (ATROVENT HFA INHAL) Inhale Active ipratropium (ATROVENT) 0.03 % nasal spray Administer 2 sprays into each nostril 2 (two) times a day Active aspirin 325 mg tablet Take 1 tablet (325 mg total) by mouth daily Active fluticasone-demarcus meterol (ADVAIR DISKUS) 500-50 mcg/dose diskus inhaler Inhale 1 puff 2 (two) times a day Rinse mouth with water after use to reduce aftertaste and incidence of candidiasis. Do not swallow. Active cetirizine (ZyrTEC) 10 mg tablet Take 1 tablet (10 mg total) by mouth daily Active omeprazole (PriLOSEC) 20 mg capsule Take 1 capsule (20 mg total) by mouth daily Active pantoprazole DR (PROTONIX) 20 mg EC tablet Take 1 tablet (20 mg total) by mouth daily Active Active Problems Problem Noted Date Diagnosed Date Palpitations 09/20/2017 History of pulmonary embolus (PE) 09/20/2017 Essential hypertension 09/20/2017 Asthma 09/20/2017 PVC (premature ventricular contraction) 09/21/19 18 Chest pressure 09/20/2017 History of pericarditis 09/20/2017 Surgical History Surgery Date Site/Laterality Comments OTHER SURGICAL HISTORY Pulmanary embolism OTHER SURGICAL HISTORY Glomerulonephritis OTHER SURGICAL HISTORY OTHER SURGICAL HISTORY FInger tendon repair TONSILECTOMY, ADENOIDECTOMY, BILATERAL MYRINGOTOMY AND TUBES CERVICAL FUSION Medical History Medical History Date Comments Asthma Asthma Family History Medical History Relation Name Comments Coronary artery disease Brother 1 Lucina nary artery disease; Hypertension Brother 2 Hypertension; Alzheimer's disease Father Prostate cancer Father Cancer, pros bender; Diabetes Mother Diabetes mellit us; Hypertension Mother Hypertension; Other Mother Alive and well; Skin cancer Mother Cancer, skin; Stroke Mother Stroke; Thyroid disease Mother Thyroid diso rder; Skin cancer Sister Cancer, skin; Relation Name Status Comments Brother 1 Alive Brother 2 Alive Father (Age 75) Mother Alive Sister Alive Social History Tobacco Use Types Packs/Day Years Used Date Smoking Tobacco: Never Smokeless Tobacco: Never Alcohol Use Standard Drinks/Week Comments No 0 (1 standard drink = 0.6 oz pur e alcohol) Comments Unknown Sex and Gender Information Value Date Recorded Sex Assigned at Not on file Legal Sex Female 9:14 AM CDT Gender Identity Not on file Sexual Orientation Not on file Obstetrics History Last Filed Vital Signs Vital Sign Reading Time Taken Comments Blood Pressure 120/72 04/11/2024 8:18 AM EVENTS MANAGER Pulse 78 04/11/2024 8:18 AM EVENTS MANAGER Temperature - - Respiratory Rate 16 07/22/2021 2:16 PM CDT Oxygen Saturation 99% 04/11/2024 8:18 AM EVENTS MANAGER Inhaled Oxygen Concentration - - Weight 68.5 kg (151 lb) 04/11/2024 8:18 AM EVENTS MANAGER Height 157.5 cm (5' 2) 04/11/2024 8:18 AM EVENTS MANAGER Body Mass Index 27.62 04/11/2024 8:18 AM EVENTS MANAGER Plan of Treatment Health Maintenance Due Date Last Done Comments Breast Cancer Screening-Mammogram 1964 Cervical Cancer Screening 1964 Colon Cancer Screening-Colonoscopy 1964 Depression Screening 1964 Hepatitis C Screening 1964 Hepatitis B Screening 1982 Regular Well Visit/Exam 18-64 1982 Pneumococcal vaccine <65 (2 of 2 - PCV) 01/01/2019 01/01/2018 Influenza Vaccine (#1) 2024 , 02/26/2019, 03/13/2018, Additional history exists DTaP/Tdap/Td Vaccine (3 - Td or Tdap) 01/02/2028 01/01/2018, 10/20/2017 Zoster Vaccine Completed 03/17/2018, 11/10/2017 Insurance R OPTIONS PPO [employer] OPTIONS PPO [facility] OPTIONS PPO Care Teams Charge Hand Relationship Specialty Start Date End Date Saundra Garcia MD PCP - General 05/26/14
--- OUTSIDE RECORDS SUMMARY | 2025-02-04 12:31 | XMS_ITS | Encounter Summary ---
Author Organization [facility] Address [address] [place] [address] Care Team Providers Care Natural Gas Engineer Name Role Phone Saundra Garcia MD Primary Care Provider [phone] Encounter Details Date Type Department Care Team (Late st Contact Info) Description 11/08/2019 Lab Requisition [facility] [address] 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 Gender Identity Not on file Sexual Orientation Not on file documented as of this encounter Plan of Treatment Not on file documented as of this encounter Procedures Procedure Name Priority Date/Time Associated Diagnosis Comments DERMATOPATHOLOGY Routine 11/07/2019 12:0 0 AM CDT documented in this encounter Results * DERMATOPATHOLOGY (11/07/2019 12:00 AM CDT) Case Report Dermatopathology Report Case: [id number] Authorizing Provider: Sheila Rhodes MD Collected: 11/07/2019 12:00 AM Ordering Location: [facility] Received: 11/08/2019 06:38 AM Pathologist: Nitza Alanis MD Specimen: Skin, left post calf 0 11:32 AM CDT DERMATOPATHOLOGY LABORATORY Final Diagnosis Specimen A. SKIN, left post calf: MALIGNANT MELANOMA, SUPERFICIAL SPREADING TYPE. BRESLOW THICKNESS 0.8MM, NAVDEEP LEVEL III. NOT PRESENT AT MARGIN (C43.72) (see microscopic description and comment) 0 11:32 AM T DERMATOPATHOLOGY LABORATORY at 1132 CDT Clinical History R/O melanoma, irregular border, irregular color 0 11:32 AM CDT DERMATOPATHOLOGY LABORATORY Gross Description Specimen A: Received is one formalin filled container labeled with the patient's name and designated left post calf. The specimen consists of a shave biopsy measuring [id number] mm. Jar 0. 0 11:32 AM CDT DERMATOPATHOLOGY LABORATORY Microscopic Description Specimen A. SKIN, left post calf: There is a proliferation melanocytes distributed in an irregular pattern singly and in nests at all levels of the epidermis, highlighted by MART-1/Melan-A immunostain. In the dermis there are irregular nests and single scattered melanocytes. This lesion is not present at the margin of the specimen. COMMENT: This case was also reviewed by Dr. Alexey Lynch who agrees with the diagnosis. 0 11:32 AM T DERMATOPATHOLOGY LABORATORY Disclaimer An external and internal positive and negative controls are appropriate for the histochemical, immunohistochemical and immunofluorescence stain(s) in this case (if any), except where stated explicitly. The performance characteristics of the stain(s) cited in this report were developed and its performance characteristic determined by the Dermatopathology Laboratory at [facility], directed by Dr. Alexey Lynch. These tests need not be, and therefore are not, approved by the [place] Food and Drug Administration. The tests are used for clinical purposes. Billing Codes Specimen Charges Stain Charges 32996 1 89655 1 0 11:32 AM CDT DERMATOPATHOLOGY LABORATORY Embedded Images 0 11:32 AM CDT DERMATOPATHOLOGY LABORATORY Synoptic Report MELANOMA OF THE SKIN: Biopsy (Skin.Melanoma - A) 8th Edition - Protocol posted: 12/19/2018 SPECIMEN Procedure: Biopsy, shave Specimen Laterality: Left TUMOR Tumor Site: Skin of lower limb and hip: Left posterior calf Histologic Type: Superficial spreading melanoma (low-cumulative sun damage (CSD) melanoma) Maximum Tumor (Breslow) Thickness (Millimeters): 0.8 mm Ulceration: Not identified Anatomic (Navdeep) Level: III (melanoma fills and expands papillary dermis) Mitotic Rate: 2 mitoses per mm2 Microsatellite(s): Not identified Lymphovascular Invasion: Not identified Neurotropism: Not identified Tumor-Infiltrating Lymphocytes: Present, nonbrisk Tumor Regression: Present MARGINS: Peripheral Margins: Negative for invasive melanoma Deep Margin: Negative for invasive melanoma PATHOLOGIC STAGE CLASSIFICATION (pTNM, AJCC 8th Edition): Primary Tumor (pT): pT1b Comment(s) Comment(s): This case was also reviewed by Dr. Alexey Lynch, who agrees. 0 11:32 AM CDT DERMATOPATHOLOGY LABORATORY Pathology/Cytolog y TISSUE SPECIMEN FROM SKIN / Unknown 11/07/2019 11/08/2019 6:38 AM CDT Sheila Rhodes MD LAB - PATHOLOGY/CYTOLOGY OR DERABLES Final Result DERMATOPATHOLOGY LABORATORY [facility] - Department of Dermatology [facility]/[address] [phone] documented in this encounter Visit Diagnoses Not on filedocumented in this encounter Care Teams Natural Gas Engineer Relationship Specialty Start Date End Date Saundra Garcia MD [address] [place] [address] PCP - General 07/23/13 documented as of this encounter
== END 2025-02-04 10:39 | disposition home or self-care (01) ==
PROVIDERS: PCP Family Medicine; Visit Provider Surgery
DX: C43.72 Malignant melanoma of left lower limb, including hip (principal)
CPT/HCPCS: 71046

== ENCOUNTER 2025-04-01 12:42 | Outpatient (CLI) | payer OTHER, SELFPAY | END 2025-04-01 12:43 | disposition home or self-care (01) | LOC: ANHAUDIO 12:42 | PROVIDERS: PCP Family Medicine Adolescent Medicine | DX: H93.19 Tinnitus, unspecified ear (principal) | CPT/HCPCS: 92557; 92567 ==